=== PATIENT | male | born 1985 | race Caucasian/White ===

== ENCOUNTER → 2020-03-17 14:31 | Outpatient (CLI) | payer OTHER, SELFPAY ==
[2020-03-17 16:26] LABS: COVID19 -Nasal RAPID Negative (Negative)
== END ==
PROVIDERS: PCP Psychiatry & Neurology Neurology; Visit Provider Physician Assistant
DX: Z20.822 Contact with and (suspected) exposure to COVID-19 (principal); Z11.59 Encounter for screening for other viral diseases
CPT/HCPCS: 87635

== ENCOUNTER → 2024-03-12 09:30 | Oncology outpatient (ONC) | payer OTHER, MEDICAID, SELFPAY ==
[2024-02-23 09:29] VITALS: BP 129/55; PULSE 67; RESP 18; TEMP 36.4; O2SAT 99
[2024-02-23] MEDS: IRON SUCROSE 200 MG in SODIUM CHLORIDE 0.9% 100 ML 220 MG IV (09:48)
[2024-02-23 10:51] VITALS: BP 117/63; PULSE 63; RESP 18; TEMP 36.6; O2SAT 98
--- NOTE | 2024-02-23 10:57 | PC.NURSE ---
VENOFER INFUSION Pt reported lightheadedness shortly after IV insertion. Pt given ice water and reclined in chair. Pt reported feeling better and venofer infusion was started at 220ml/hr for 30 minutes. Pt tolerated infusion without issue. Monitored Pt for additional 30 minutes post infusion, VSS. Pt educated on s/s of reaction, common side effects and when to seek care, Pt voiced understanding.
[2024-02-23 11:08] VITALS: BP 115/78; PULSE 68; RESP 18; TEMP 36.6; O2SAT 98
[2024-02-28 09:37] VITALS: BP 112/62; PULSE 63; RESP 16; TEMP 36.9; O2SAT 98
[2024-02-28] MEDS: IRON SUCROSE 200 MG in SODIUM CHLORIDE 0.9% 100 ML 220 MG IV (10:03)
[2024-02-28 11:16] VITALS: BP 127/71; PULSE 60; RESP 16
[2024-03-01] MEDS: IRON SUCROSE 200 MG in SODIUM CHLORIDE 0.9% 100 ML 220 MG IV (10:05)
[2024-03-01 10:19] VITALS: BP 135/65; PULSE 73; RESP 16; TEMP 37; O2SAT 100
[2024-03-05] MEDS: IRON SUCROSE 200 MG in SODIUM CHLORIDE 0.9% 100 ML 220 MG IV (09:47)
[2024-03-05 10:35] VITALS: BP 121/68; PULSE 58; RESP 16; TEMP 36.8; O2SAT 100
[2024-03-12 09:30] VITALS: BP 119/60; PULSE 63; RESP 18; TEMP 36.6; O2SAT 100
[2024-03-12] MEDS: IRON SUCROSE 200 MG in SODIUM CHLORIDE 0.9% 100 ML 220 MG IV (09:44)
[2024-03-12 10:42] VITALS: BP 128/67; PULSE 58; RESP 16; TEMP 36.9; O2SAT 99
== END ==
PROVIDERS: PCP Psychiatry & Neurology Neurology; Referring Provider Nurse Practitioner; Visit Provider Nurse Practitioner
DX: D50.9 Iron deficiency anemia, unspecified (principal)
CPT/HCPCS: 96365; J1756

== ENCOUNTER → 2024-07-19 08:30 | Oncology outpatient (ONC) | payer OTHER, SELFPAY ==
[2024-07-09] MEDS: IRON SUCROSE 300 MG in SODIUM CHLORIDE 0.9% 250 ML 176.667 MG IV (13:47)
[2024-07-09 13:50] VITALS: BP 118/65; PULSE 65; RESP 16; TEMP 37.2; O2SAT 100
[2024-07-09] MEDS: SODIUM CHLORIDE 0.9% 350 ML 1000 ML IV (15:55)
[2024-07-09 16:55] VITALS: BP 126/56; PULSE 56; RESP 16; TEMP 37; O2SAT 100
[2024-07-11 11:10] VITALS: BP 131/60; PULSE 67; RESP 18; TEMP 37.1; O2SAT 99
[2024-07-11] MEDS: IRON SUCROSE 300 MG in SODIUM CHLORIDE 0.9% 250 ML 176.667 MG IV (11:26)
[2024-07-11] MEDS: SODIUM CHLORIDE 0.9% 500 ML 999 ML IV (13:10)
[2024-07-11 13:56] VITALS: BP 122/60; PULSE 66; RESP 18; TEMP 36.6; O2SAT 99
[2024-07-19] MEDS: SODIUM CHLORIDE 0.9% 1,000 ML 400 ML IV (08:35)
[2024-07-19 08:40] VITALS: BP 133/67; PULSE 55; RESP 16; TEMP 36.9; O2SAT 100
[2024-07-19] MEDS: IRON SUCROSE 300 MG in SODIUM CHLORIDE 0.9% 250 ML 176.667 MG IV (08:43)
[2024-07-19 11:09] VITALS: BP 109/70; PULSE 60; RESP 16; TEMP 36.6; O2SAT 100
== END ==
PROVIDERS: PCP Psychiatry & Neurology Neurology; Referring Provider Nurse Practitioner; Visit Provider Nurse Practitioner
DX: D50.9 Iron deficiency anemia, unspecified (principal)
CPT/HCPCS: 96360; 96361; 96365; 96366; J1756

== ENCOUNTER 2024-10-05 06:49 | Day surgery (SDC) | payer OTHER, SELFPAY ==
[2024-10-03 09:38] VITALS: BMI 25.0
--- NOTE | 2024-10-05 | PATH_ITS ---
[facility] Accession Number: [id number] No. of containers..01 Tissue . 01 Material submitted: . hemorrhoids - HEMORRHOIDS . 01 Diagnosis: HEMORRHOIDS, EXCISION: Benign hemorrhoid tissue. No evidence of neoplasm. MRV 10/15/2024 1606 Local . 01 Electronically signed: . Wan Pereira MD, PhD, Pathologist NPI- [id number] . 01 Gross description: . HEMORRHOIDS: Received in formalin is 2 fragments of hanson soft tissue measuring 4.0 x 3.0 x 2.5 cm in aggregate. Tissue is inked. Specimen is sectioned and submitted in medical field representative sections in 2 cassettes. /MISSAEL 10/12/2024 2209 Local . 01 Pathologist provided ICD-10: K64.9 . 01 CPT . 845620 Specimen Comment: A courtesy copy of this report has been sent to [facility] Pathology Performed at: [address] [address], [place], [place] [id number] MD Taot Schneider MD Phone: [phone]
[2024-10-05 07:06] VITALS: BP 123/66; PULSE 59; RESP 16; TEMP 36.2; O2SAT 100; BMI 25.7
[2024-10-05] MEDS: LACTATED RINGERS 1,000 ML 42 ML IV ×2 (07:21→08:54)
--- NOTE | 2024-10-05 07:36 | P.HP_ITS ---
History of Present Illness History of Present Illness Date Patient Seen: 10/05/24 Time Patient Seen: 07:36 Chief complaint: Hemorrhoidectomy Narrative: Patient presents for hemorrhoidectomy this morning. H/O bleeding to hgb 7 requiring iron infusions. PFSH Social History household members: significant other Smoking Status: Former smoker Meds Home Medications and Allergies Allergies Allergy/AdvReac Type Severity Reaction Status Date / Time No Known Drug Allergies Allergy Verified 10/05/24 07:06 Exam Vital Signs (past 8 hours): - 10/05/24 07:06 Temperature 97.1 F L Pulse Rate 59 L Respiratory Rate 16 Blood Pressure 123/66 Pulse Oximetry 100 Oxygen Delivery Method Room Air Oxygen Delivery Method Room Air Const General: healthy appearing and comfortable Orientation: alert and oriented x3 Resp Effort & Inspection: normal respiratory effort and able to speak in complete sentences Auscultation: clear to auscultation bilaterally Cardio Rate: regular rate Rhythm: regular rhythm GI Palpation: soft (nontender) Extrem Other: without pitting edema Assessment & Plan Assessment and plan (1) Bleeding hemorrhoids: Status: Acute Plan Plan hemorrhoidectomy for bleeding hemorrhoids refractory to maximal medical management. The risks, benefits and options regarding the procedure were explained to the patient in detail. Risk discussion included but not limited to: pain, bleeding, recurrence, stricture. The patient was encouraged to ask questions and they were answered to their satisfaction. The patient understands and is agreeable to proceed. Time-Based Coding :: [TOTAL MINUTES] spent with patient and on the chart (including review of chart, obtaining history, exam, reviewing outside data, placing orders, documenting exam and treatment plan, and counseling patient) on [DATE]. [employer] Document charge(s): Yes Charge Codes Inpatient/observation care including admit and discharge same day: 64029
--- NOTE | 2024-10-05 08:11 | SUR.OPER ---
Prone on padded OR bed, head in foam head support, gel chest rolls, gel pad under knees, pillow under lower legs, toes free of pressure, arms secured on padded arm boards at <90 degrees abduction. Safety belt at thigh. and PA approved of positioning
[2024-10-05] MEDS: BUPIVACAINE 0.5% W/ EPI (PF) 30 ML VIAL INJ (08:23)
[2024-10-05] MEDS: BACITRACIN OINT 0.9 GM PCKT 2 APPLIC TOP (08:34)
[2024-10-05 08:48] VITALS: BP 164/73; PULSE 120; RESP 21; TEMP 36.6; O2SAT 98
--- NOTE | 2024-10-05 08:55 | P.OP_ITS ---
Operative Date/Time/Diagnoses Date of procedure: 10/05/24 Time of procedure: 08:55 Pre-op diagnosis: Hemorrhoid with hemorrhage Post-op diagnosis: same Procedure & Clinicians Procedure: Hemorrhoidectomy Same procedure(s) as scheduled: Yes Indications: 39yo M with hemorrhoid hemorrhage to hgb 7, requiring iron transfusion, failed maximal medical treatment. Surgeon: Charles Ramos Retouching Operator: Maruy Mittal Anesthesia Type: General Operative Notes Findings: Large hemorrhoidal columns at 3 and 11 o'clock excised. 7 o'clock internal ligated Specimen(s): other (hemorrhoidal tissue) Applied: none Estimated Blood Loss (mL): 20 Blood products transfused: none Procedure in detail: After informed consent and satisfactory general endotracheal anesthesia the patient was placed in the prone position and pressure points well padded. The table was jackknifed and the buttocks were taped apart. After sterile prepping and draping, surgical time-out was performed to ensure we had the proper patient, position and procedure with all team members in agreement. I injected 30 cc of 0.5% Marcaine with epi around the sphincter mechanism. Exam under anesthesia demonstrated the largest hemorrhoid at the 3 o'clock position. The 2nd largest was at the 11 o'clock position. He also had an internal at 7:00 o'clock. The 3:00 o'clock and 11:00 o'clock hemorrhoids had a large external component. Rectal retractors were used for exposure. The 3:00 o'clock he morrhoid was the largest and was addressed 1st. I grasped the external component with an Allis and the internal continuation with hemostats. A v- shaped external incision was fashioned with the cut setting on the cautery and this was carefully advanced proximally taking great care to avoid injury to the sphincter muscle and avoid taking too much tissue. The proximal extent of the hemorrhoid was suture ligated with 3-0 chromic and this was used to run the mucocutaneous closure in a running locking fashion. The excess hemorrhoidal tissue was removed with Ledbetter scissors. The 11:00 o'clock hemorrhoid was excised in an identical manner. There was plenty of mucocutaneous junction between the 2 excisions to minimize the risk for stricture. The hemorrhoidal column at the 7 o'clock position was a large internal. I did not want to excise it formally for fear of stricture and I did not want to leave it as it would certainly continue his symptoms so I placed a tonsil clamp around the base of the internal and ligated it with a 3-0 chromic suture similar to banding. Hemostasis was excellent. There were no large skin tags remaining after the excision. The estimated blood loss was minimal. The instrument sponge and needle counts were all correct x2. The patient tolerated the procedure well and was transported to the recovery area in stable condition after reversal of general endotracheal anesthesia. Complications: none Post-operative Condition: stable Disposition: PACU Plan for aftercare: PACU then home
[2024-10-05] MEDS: hydrOXYzine 50 MG/ML INJ 25 MG IM (08:56)
[2024-10-05] MEDS: ACETAMINOPHEN 325 MG TABLET 975 MG PO (08:57)
[2024-10-05] MEDS: ONDANSETRON 4 MG/2 ML INJ IV (08:58)
[2024-10-05] MEDS: OXYCODONE IR 5 MG TABLET PO (08:58)
[2024-10-05 09:00] VITALS: BP 140/63; PULSE 99; RESP 17; O2SAT 98
[2024-10-05 09:05] VITALS: BP 150/82; PULSE 94; RESP 21; O2SAT 98
[2024-10-05 09:14] VITALS: BP 148/84; PULSE 97; RESP 16; O2SAT 98
== END 2024-10-05 09:44 | disposition home or self-care (01) ==
PROVIDERS: PCP Family Medicine; Referring Provider Surgery; Visit Provider Surgery
PROC: (CPT 46260; principal; 2024-10-05 07:45)
DX: K64.8 Other hemorrhoids (principal)
CPT/HCPCS: 46260; J0330; J1100; J2250; J2405; J2704; J3010; J3410

== ENCOUNTER → 2024-11-26 09:25 | Oncology outpatient (ONC) | payer OTHER, SELFPAY ==
[2024-09-20] MEDS: IRON SUCROSE 300 MG in SODIUM CHLORIDE 0.9% 250 ML 176.667 MG IV (11:08)
[2024-09-20 11:10] VITALS: BP 121/67; PULSE 67; RESP 16; TEMP 37; O2SAT 100
[2024-09-20 13:22] VITALS: BP 116/60; PULSE 54; RESP 16; TEMP 36.8; O2SAT 100
[2024-10-10] MEDS: IRON SUCROSE 300 MG in SODIUM CHLORIDE 0.9% 250 ML 176.667 MG IV (09:24)
[2024-10-10 09:38] VITALS: BP 127/68; PULSE 58; RESP 16; TEMP 37.2; O2SAT 100
[2024-10-10 11:30] VITALS: BP 130/63; PULSE 61; RESP 16; TEMP 37.2; O2SAT 100
[2024-11-06] MEDS: IRON SUCROSE 300 MG in SODIUM CHLORIDE 0.9% 250 ML 176.667 MG IV (10:05)
[2024-11-06 10:13] VITALS: BP 115/65; PULSE 57; RESP 16; TEMP 36.6; O2SAT 100
[2024-11-06 12:15] VITALS: BP 114/65; PULSE 58; RESP 16; TEMP 36.6; O2SAT 100
[2024-11-26 09:47] VITALS: BP 114/64; PULSE 58; RESP 16; TEMP 36.9; O2SAT 98
[2024-11-26] MEDS: IRON SUCROSE 300 MG in SODIUM CHLORIDE 0.9% 250 ML 176.667 MG IV (10:14)
[2024-11-26 12:41] VITALS: BP 114/68; PULSE 51; RESP 16; TEMP 36.7; O2SAT 98
== END ==
PROVIDERS: PCP Family Medicine; Referring Provider Family Medicine; Visit Provider Family Medicine
DX: D50.9 Iron deficiency anemia, unspecified (principal)
CPT/HCPCS: 96365; 96366; 96367; J1756